=== PATIENT | female | born 1930 | race Caucasian/White ===

== ENCOUNTER → 2017-11-04 | Outpatient (CLI) | payer OTHER, MEDICARE ==
--- NOTE | ~2017-11-04 | 2DMMODE ---
[facility] [address] [employer] [place] [address] 2 D/M-MODE ECHOCARDIOGRAM Name: RYAN HOGAN Room #: REG [facility]#: [id number] Admission: 11/04/17 Attend Phys: Jaime Villalta Discharge: Date of : [birth year] Date of Service: 11/04/17 1426 Report #: [id number] THIS REPORT FOR: //name// APPROVED REPORT Study performed: 11/04/2017 13:01:02 EXAM: Comprehensive 2D, Doppler, and color-flow Echocardiogram Patient Location: Out-Patient Status: routine BSA: 2.00 HR: 47 bpm BP: 188/95 mmHg Rhythm: Bradycardia Other Information Study Quality: Good Indications Hypertension. Edema. 2D Dimensions RVDd: 33.88 mm LVEF(%): 53.79 (>50%) IVSd: 12.93 (7-11mm) LVOT Diam: 22.11 (18-24mm) LVDd: 53.75 mm PWd: 10.40 (7-11mm) Ascending Ao: 43.78 (22-36mm) LVDs: 38.67 (25-40mm) Aortic Root: 36.31 mm Mahajan's LVEF: 53.79 % Volumes Left Atrial Volume (Systole) Single Plane 4CH: 64.61 mL Single Plane 2CH: 71.44 mL LA ESV Index: 37.00 mL/m2 Aortic Valve AoV Peak Russ.: 1.71 m/s AO Peak Gr.: 11.65 mmHg LVOT Max P.47 mmHg LVOT Max V: 1.45 m/s OMID Vmax: 3.27 cm2 Mitral Valve E/A Ratio: 0.8 MV Decel. Time: 346.05 ms [facility] [employer] [place] [place] [address] 2 D/M-MODE ECHOCARDIOGRAM Name: RYAN HOGAN Room #: [facility]#: [id number] Admission: 11/04/17 Attend Phys: Jaime Villalta Discharge: Date of : [birth year] Date of Service: 11/04/17 1426 Report #: [id number] MV E Max Russ.: 0.59 m/s MV A Russ.: 0.72 m/s MV PHT: 100.35 ms IVRT: 124.57 ms Pulmonary Valve PV Peak Russ.: 0.90 m/s PV Peak Gr.: 3.21 mmHg Pulmonary Vein P Vein S: 0.54 m/s P Vein A: 0.33 m/s P Vein D: 0.38 m/s P Vein A Dur.: 166.1 msec P Vein S/D Ratio: 1.42 Tricuspid Valve TR Peak Russ.: 2.24 m/s RAP Estimate: 5.00 mmHg TR Peak Gr.: 20.15 mmHg PA Pressure: 25.00 mmHg Left Ventricle The left ventricle is normal size. There is normal LV segmental wall motion. Mild septal hypertrophy is present. Left ventricular systolic function is normal. LVEF is 55-60%. Mild diastolic dysfunction is present (impaired relaxation pattern). Right Ventricle The right ventricle is normal size. The right ventricular systolic function is normal. Atria Left atrium is mildly dilated. Right atrium is mildly dilated. Aortic Valve Aortic valve leaflets are mildly thickened and calcified. Mild to moderate aortic regurgitation. There is no aortic valvular stenosis. Mitral Valve The mitral valve is normal in structure. Mild mitral annular calcification. Mild mitral regurgitation. Tricuspid Valve The tricuspid valve is normal in structure. Mild tricuspid regurgitation. Estimated PAP is 25mmHg. Pulmonic Valve [address] [address] 2 D/M-MODE ECHOCARDIOGRAM Name: EDISONRYAN [id number] Admission: 11/04/17 Attend Phys: Jaime Villalta Discharge: Date of : [birth year] Date of Service: 11/04/17 1426 Report #: [id number] The pulmonary valve is normal in structure. Trace pulmonic regurgitation. Great Vessels The aortic root is normal in size. 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 IVC is normal in size and collapses >50% with inspiration. Pericardium There is no pericardial effusion. <Conclusion> The left ventricle is normal size. LVEF is 55-60%. Left atrium is mildly dilated. Right atrium is mildly dilated. Aortic valve leaflets are mildly thickened and calcified. Mild to moderate aortic regurgitation. The mitral valve is normal in structure. Mild mitral annular calcification. Mild mitral regurgitation. The tricuspid valve is normal in structure. Mild tricuspid regurgitation. Estimated PAP is 25mmHg. The pulmonary valve is normal in structure. Trace pulmonic regurgitation. 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 There is no pericardial effusion. <ELECTRONICALLY SIGNED> By: Jaime Ojeda MD 11/04/17 1426 1426 1426 Jaime Ojeda MD /INF
== END ==
LOC: CV 11-03 11:36
DX: I08.3 Combined rheumatic disorders of mitral, aortic and tricuspid valves (principal); I10 Essential (primary) hypertension